=== PATIENT | female | born 1950 | race Two or more races ===

== ENCOUNTER 2019-03-08 17:53 | Emergency (ER) | payer OTHER, MEDICAID ==
[2019-03-08 17:55] VITALS: Ht 160 cm
[2019-03-08 18:29] LABS: BASOPHIL % 0.6 % (0-2); PLATELET COUNT 284 x10^3mcL (130-400); RED CELL DISTRIBUTION WIDTH 12.5 % (11.5-14.5)
[2019-03-08 18:39] LABS: CALCIUM 9.2 mg/dL (8.5-10.1); CARBON DIOXIDE 21.6 mmol/L (21-32); POTASSIUM SERUM 3.7 mmol/L (3.5-5.1)
[2019-03-08 18:43] LABS: ALBUMIN 4.2 g/dL (3.4-5.0); BILIRUBIN TOTAL 0.58 mg/dL (0.20-1.00); MAGNESIUM 1.9 mg/dL (1.8-2.4); TOTAL PROTEIN, SERUM 7.6 g/dL (6.4-8.2)
[2019-03-09 00:15] VITALS: BP 104/74
== END 2019-03-09 00:15 | disposition home or self-care (01) ==
LOC: ED 17:53
PROVIDERS: Emergency Medicine
DX: E11.649 Type 2 diabetes mellitus with hypoglycemia without coma (principal); E86.0 Dehydration; I10 Essential (primary) hypertension; F32.9 Major depressive disorder, single episode, unspecified
CPT/HCPCS: 82962; J1885; J7030; J7042